=== PATIENT | male | born 1965 | race African-American/Black ===

== ENCOUNTER 2017-12-27 17:13 | Emergency (ER) | payer BC ==
[~2017-12-27] VITALS: Ht 180.3 cm; Wt 86.2 kg
[~2017-12-27 17:13] MED LIST: ACETAMINOPHEN325 M1 PO; NOHOMEMEDICATIONS; NORVASC 5 MG TAB5 MG PO; PRILOSEC 20 MG20 MG PO; TRIAMCINOLONE A15 G1 TP
[2017-12-27 17:45] LABS: ABSOLUTE NEUTROPHILS 2.1 thou/uL (1.4-8.2); BASOPHILS 0.6 % (0.0-2.0); EOSINOPHILS 1.1 % (0.0-3.0); HEMATOCRIT 48.2 % (42.0-52.0); LYMPHOCYTES 44.2 % (24.0-44.0); MCH 26.8 pg (26.0-34.0); MCHC 33.2 g/dL (28.0-37.0); MCV 80.5 fL (80.0-100.0); MONOCYTES 11.9 % (1.0-8.0); PLATELET COUNT 295 thou/uL (150-400); POLYS 42.2 % (36.0-66.0); RBC 5.98 mil/uL (4.50-6.00); RDW 15.8 % (10.5-14.5)
[2017-12-27 17:51] LABS: CALCIUM 10.7 mg/dL (8.5-10.1); CREATININE 1.2 mg/dL (0.7-1.3)
[2017-12-27 17:57] LABS: TOTAL BILIRUBIN 0.7 mg/dL (<0.1-1.0); TOTAL PROTEIN 8.1 g/dL (6.4-8.2)
[2017-12-27 18:20] LABS: URINE BILIRUBIN NEGATIVE (Negative); URINE BLOOD 1+ (Negative); URINE CLARITY CLEAR; URINE COLOR YELLOW; URINE GLUCOSE-RANDOM* NEGATIVE (Negative); URINE KETONES 2+ (Negative); URINE LEUKOCYTES NEGATIVE (Negative); URINE NITRITE NEGATIVE (Negative); URINE PROTEIN (DIPSTICK) NEGATIVE (Negative); URINE SPECIFIC GRAVITY >= 1.030 (1.005-1.035); URINE UROBILINOGEN 0.2 E.U./dl (0.2-1.0)
[2017-12-27 18:48] LABS: SQUAMOUS 0-3 Few /LPF (0-3); URINE RBC 3-10 Few /HPF (0-2)
[2017-12-27 18:49] LABS: BACTERIA None Seen /HPF (None Seen); CASTS None Seen /LPF (None Seen); CRYSTALS None Seen /LPF (None Seen); URINE WBC 0-5 Rare /HPF (0-5)
[2017-12-27] MEDS ORDERED: IBUPROFEN 600600 M1 PO (19:01)
[2017-12-27] MEDS ORDERED: PHENERGAN 25 MG25 M1 PO (19:01)
[2017-12-27] MEDS ORDERED: BENTYL 20 MG TA20 M1 PO (19:01)
== END 2017-12-27 19:11 | disposition home or self-care (01) ==
LOC: ER 17:13
PROVIDERS: Physician Assistant
DX: R10.31 Right lower quadrant pain (principal); R11.2 Nausea with vomiting, unspecified; J06.9 Acute upper respiratory infection, unspecified; Z87.891 Personal history of nicotine dependence

== ENCOUNTER 2018-02-23 07:35 | Emergency (ER) | payer BC ==
[~2018-02-23] VITALS: Ht 180.3 cm; Wt 81.7 kg
[~2018-02-23 07:35] MED LIST changes: +BENTYL 20 MG TA20 M1 PO; +IBUPROFEN 600600 M1 PO; +PHENERGAN 25 MG25 M1 PO
[2018-02-23 07:51] LABS: URINE BILIRUBIN NEGATIVE (Negative); URINE BLOOD TRACE (Negative); URINE CLARITY CLEAR; URINE COLOR YELLOW; URINE GLUCOSE-RANDOM* NEGATIVE (Negative); URINE KETONES NEGATIVE (Negative); URINE LEUKOCYTES-REFLEX NEGATIVE (Negative); URINE NITRITE-REFLEX NEGATIVE (Negative); URINE PROTEIN (DIPSTICK) TRACE (Negative); URINE SPECIFIC GRAVITY 1.015 (1.005-1.035); URINE UROBILINOGEN 0.2 E.U./dl (0.2-1.0)
[2018-02-23 08:06] LABS: ABSOLUTE NEUTROPHILS 3.4 thou/uL (1.4-8.2); BASOPHILS 0.6 % (0.0-2.0); EOSINOPHILS 1.3 % (0.0-3.0); HEMATOCRIT 44.7 % (42.0-52.0); HEMOGLOBIN 14.8 gm/dL (14.0-18.0); LYMPHOCYTES 24.9 % (24.0-44.0); MCH 26.3 pg (26.0-34.0); MCHC 33.2 g/dL (28.0-37.0); MCV 79.4 fL (80.0-100.0); MONOCYTES 7.7 % (1.0-8.0); PLATELET COUNT 395 thou/uL (150-400); POLYS 65.5 % (36.0-66.0); RBC 5.63 mil/uL (4.50-6.00); RDW 15.9 % (10.5-14.5); WBC 5.2 thou/uL (4.0-11.0)
[2018-02-23 08:13] LABS: CALCIUM 10.9 mg/dL (8.5-10.1); POTASSIUM 3.8 mmol/L (3.5-5.1)
[2018-02-23 08:19] LABS: ALBUMIN 3.9 g/dL (3.4-5.0); TOTAL BILIRUBIN 0.5 mg/dL (<0.1-1.0); TOTAL PROTEIN 8.1 g/dL (6.4-8.2)
[2018-02-23] MEDS ORDERED: ROXICODONE30 M1 PO (08:22)
[2018-02-23] MEDS ORDERED: SENNA8.6 MG PO (08:23)
[2018-02-23] MEDS ORDERED: PHENERGAN 25 MG25 M1 PO (11:27)
[2018-02-23] MEDS ORDERED: ZOFRAN ODT4 MG PO (11:27)
[2018-02-23] MEDS ORDERED: SENNA-DOCUSATE1 EAC1 PO (11:32)
[2018-02-23 11:37] VITALS: BP 117/79
== END 2018-02-23 11:39 | disposition home or self-care (01) ==
LOC: ER 07:35
PROVIDERS: Emergency Medicine
DX: K52.9 Noninfective gastroenteritis and colitis, unspecified (principal); Z87.891 Personal history of nicotine dependence; Z88.8 Allergy status to other drugs, medicaments and biological substances; Z95.5 Presence of coronary angioplasty implant and graft

== ENCOUNTER 2018-06-05 01:06 | Inpatient (IN) | payer BC ==
[~2018-06-05] VITALS: Ht 180.3 cm; Wt 71.2 kg
[2018-06-05] VITALS (7 sets, daily range): BP systolic 105–160; BP diastolic 70–91
[~2018-06-05 01:06] MED LIST changes: +ROXICODONE30 M1 PO; +SENNA-DOCUSATE1 EAC1 PO; +SENNA8.6 MG PO; +ZOFRAN ODT4 MG PO
[2018-06-05] MEDS ORDERED: ENOXAPARIN80 MG/0.1 SUBQ (01:49)
[2018-06-05] MEDS ORDERED: PHENERGAN 25 MG25 M1 PO (01:49)
[2018-06-05] MEDS ORDERED: ONDANSETRON ODT8 MG PO (01:50)
[2018-06-05] MEDS ORDERED: PROTONIX40 M1 PO (01:50)
[2018-06-05] MEDS ORDERED: METOCLOPRAM5 MG/5 M3 PO (01:50)
[2018-06-05] MEDS ORDERED: LORAZEPAM2 MG/1 M2 PO (01:52)
[2018-06-05] MEDS ORDERED: FENTANYL1 EAC1 TRANSDERM (01:52)
[2018-06-05] MEDS ORDERED: COMPAZINE10 MG PO (01:52)
[2018-06-05] MEDS ORDERED: MORPHINE S100 MG/5 M SUBLING (01:53)
[2018-06-05 02:17] LABS: ABSOLUTE NEUTROPHILS 6.8 thou/uL (1.4-8.2); BASOPHILS 0.5 % (0.0-2.0); EOSINOPHILS 0.6 % (0.0-3.0); HEMATOCRIT 33.8 % (42.0-52.0); HEMOGLOBIN 11.1 gm/dL (14.0-18.0); LYMPHOCYTES 7.4 % (24.0-44.0); MCH 25.5 pg (26.0-34.0); MCHC 32.8 g/dL (28.0-37.0); MCV 77.9 fL (80.0-100.0); MONOCYTES 6.2 % (1.0-8.0); PLATELET COUNT 357 thou/uL (150-400); POLYS 85.3 % (36.0-66.0); RBC 4.34 mil/uL (4.50-6.00); RDW 16.3 % (10.5-14.5); WBC 7.9 thou/uL (4.0-11.0)
[2018-06-05 02:26] LABS: CALCIUM 10.1 mg/dL (8.5-10.1); CREATININE 0.9 mg/dL (0.7-1.3); POTASSIUM 3.6 mmol/L (3.5-5.1)
[2018-06-05 02:31] LABS: ALBUMIN 1.9 g/dL (3.4-5.0); TOTAL BILIRUBIN 0.5 mg/dL (<0.1-1.0); TOTAL PROTEIN 6.9 g/dL (6.4-8.2)
--- NOTE | 2018-06-05 06:46 | NUR ---
RECIEVED PATIENT PER CART FROM ER WITH AT SIDE. ASSISTED TO BED FOR COMFORT. PATIENT DROWSY AND IS ANSWERING QUESTIONS FOR HIM. TELEMETRY SHOWS SR WITH RATE 86. PATIENT RESTING WITHOUT PRESENT COMPLAINTS OF PAIN OR NAUSEA AT THIS TIME. CONTINUE TO ASSES. ADMISSION PROCES STARTED. SHOWN PATIENT LOUNGE WITH COFFEE MACHINE. REPORT GIVEN TO DAY RN.
--- NOTE | 2018-06-05 09:50 | NUR ---
chart review. cm visited with pt at bedside. he prefers going by larissa. intro to cm, dcp, transition of care, and home health. pt stated with his eyes open and closed " live with , house, 6 steps to enter, no stairs inside. independent when feeling ok. 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 getting immunotherapy. tpn at home in right arm, my does that. have home health. you will need to ask jonny, who it is with. thank you going to rest"/larissa. letting pt rest called jonny, no answer, will cont following as needed for dc needs. dcp home
--- NOTE | 2018-06-05 20:01 | NUR ---
Assumed pt care this am, admission requirements done except for consents, pt was very drowsy. Pt did have an episode of nausea and vomiting accompanied by abdominal pain. Medications given, relief noted since pt was asleep for most of the shift. Seen by Dr. Leonard, G- tube put on intermittent suction, out put is only in the tubing, instructions are to measure output every 12 hours. is at the bedside and will be spending the night.
[2018-06-06 04:03] VITALS: BP 135/85
[2018-06-06 05:48] LABS: URINE BILIRUBIN 2+ (Negative); URINE BLOOD NEGATIVE (Negative); URINE CLARITY CLEAR; URINE COLOR ORANGE; URINE GLUCOSE-RANDOM* NEGATIVE (Negative); URINE KETONES NEGATIVE (Negative); URINE LEUKOCYTES-REFLEX NEGATIVE (Negative); URINE NITRITE-REFLEX NEGATIVE (Negative); URINE PROTEIN (DIPSTICK) TRACE (Negative); URINE SPECIFIC GRAVITY >= 1.030 (1.005-1.035)
[2018-06-06 05:54] LABS: HEMATOCRIT 29.9 % (42.0-52.0); MCH 26.3 pg (26.0-34.0); MCHC 33.4 g/dL (28.0-37.0); MCV 78.9 fL (80.0-100.0); RBC 3.79 mil/uL (4.50-6.00); RDW 16.9 % (10.5-14.5); WBC 5.2 thou/uL (4.0-11.0)
[2018-06-06 06:06] LABS: CALCIUM 10.1 mg/dL (8.5-10.1); CREATININE 0.8 mg/dL (0.7-1.3); POTASSIUM 3.7 mmol/L (3.5-5.1)
[2018-06-06 07:10] VITALS: BP 117/74
--- NOTE | 2018-06-06 07:27 | NUR ---
PATIENT SLEPT PART OF THE NIGHT WITH AT BEDSIDE. PATIENT DID REPORT NAUSEA AND PAIN WHICH WAS TREATED WITH MEDICATION. G-TUBE IS TO LOW INTEMETTENT SUCTION AND HAD 500 DARK GREEN OUTPUT. FAMILY WAS CONCERNED ABOUT NUTRITION AND Dian DIALLO WAS NOTIFIED. ORDERS FOR TPN RECEIVEDS. PATIENT IS PROGRESSING TOWARDS DC GOALS.
[2018-06-06] MEDS ORDERED: ZOFRAN ODT4 MG SUBLING (09:58)
[2018-06-06] MEDS ORDERED: DURAGESIC1 EAC4 TOP (10:02)
[2018-06-06] MEDS ORDERED: DURAGESIC1 EAC5 TOP (10:04)
[2018-06-06] MEDS ORDERED: ADULT SUPPOSIT1 EACH RECTAL (10:08)
[2018-06-06] MEDS ORDERED: PROMETHAZI6.25 MG/5 PO (10:15)
--- NOTE | 2018-06-06 12:00 | NUR ---
VASCULAR ACCESS TEAM ROUNDING, OBTAINED CXR TO CONFIRM PICC PLACEMENT. PT WAS ADMITTED WITH PICC LINE. PT RECEIVING TPN AND FLUIDS. PICC IS APPROPRIATE FOR TPN. +BR X2.
[2018-06-06 14:39] VITALS: BP 127/82
--- NOTE | 2018-06-06 17:20 | NUR ---
RECIEVED FAX AND VM FROM [facility] INDICATING THAT PT HAD BEEN ON SERVICE WITH THEM DELI DEPARTMENT MANAGER. CM TO CALL THEM BACK ABOUT HOME SUCTION TOMORROW. CM TO CONTINUE TO FOLLOW INDICATED WITH DC PLANNING.
--- NOTE | 2018-06-06 18:35 | NUR ---
Pt resumed TPN this am. Med list and other medical records with regards to TPN given to pharmacy and Dr. Barr. G tube connected to the intermittent suction draining yellowish green fluid. Nausea and vomiting stated, though not witnessed. PICC line verified and dressing and caps changed by IV team today. complete bath was given by himself assisted by his . Daily weights were ordered. Pain medication is requested on the dot though pt would be coming from sleep and and did not show signs of pain. is at the bed side.
[2018-06-06 20:00] VITALS: BP 120/76
--- NOTE | 2018-06-07 02:22 | NUR ---
ASSUMED CARE AROUND 0. AXOX4. AT BEDSIDE. FENTANYL PATCH CLARIFIED TO 1 75MCG PATCH. PO PROTONIX CHANGED TO IV PEPSID. COMPAZINE ADDED TO AID NAUSEA. TPN CAHNGED TO FORMULA WITH LIPIDS. PAIN MANGED PER MD ORDER. PEG CONNECTED TO SUCTION. IVF FOR HYDRATION. VSS. NO S/S ACUTE DISTRESS NOTED OR REPORTED AT THIS TIME. WILL CONT TO MONITOR ANY CHANGES IN CONDITION.
[2018-06-07 05:06] VITALS: BP 113/72
[2018-06-07 06:06] LABS: HEMATOCRIT 27.4 % (42.0-52.0); HEMOGLOBIN 8.8 gm/dL (14.0-18.0); MCH 25.8 pg (26.0-34.0); MCHC 32.3 g/dL (28.0-37.0); MCV 79.8 fL (80.0-100.0); RBC 3.43 mil/uL (4.50-6.00); RDW 16.5 % (10.5-14.5); WBC 4.7 thou/uL (4.0-11.0)
[2018-06-07 06:34] LABS: ALBUMIN 1.6 g/dL (3.4-5.0); CREATININE 0.7 mg/dL (0.7-1.3); MAGNESIUM 1.7 mg/dL (1.8-2.4); PHOSPHORUS 2.7 mg/dL (2.5-4.9); POTASSIUM 3.5 mmol/L (3.5-5.1); TOTAL BILIRUBIN 0.4 mg/dL (<0.1-1.0); TOTAL PROTEIN 5.7 g/dL (6.4-8.2)
[2018-06-07 07:37] VITALS: BP 112/71
[2018-06-07 13:53] VITALS: BP 119/81
--- NOTE | 2018-06-07 14:43 | NUR ---
CM NOTIFIED YESTERDAY EVENING THAT PT NEEDED SUCTION FOR HIS GTUBE FOR HOME USE. CM CALLED [facility], [facility], [facility], AND [facility] AND NONE OF THEM PROVIDE NEEDED SUPPLIES. CM FAXED ORDERS FOR PT'S TPN WITH [facility] BACK TO THE OFFICE AND THEY ARE ABLE TO PROVIDE TPN UPON DC. CM TRYING TO FIND PROVIDER FOR HOME SUCTION FOR GTUBE.
[2018-06-07 16:05] VITALS: BP 119/81
[2018-06-07 16:07] VITALS: BP 119/81
[2018-06-07 16:53] VITALS: BP 119/81
--- NOTE | 2018-06-07 18:10 | NUR ---
DISCHARGED TO HOME WITH HOME HEALTH. INTERMITTENT SUCTION SENT HOME WITH PATIENT AND THEY WILL RETURN WHEN THIER MACHINE GETS DELIVERED. AMBULATES WITHOUT ASSIST. VERY PLEASANT AND COOPERATIVE. LEFT UPPER ARM PICC SALINE LOCKED. VOIDS WITHOUT DIFFICULTY.
== END 2018-06-07 18:15 | disposition home health service (06) | DRG 388 ==
LOC: ER 01:06 → EROBS 05:30 → 4W 05:30 → ENTRNSPT 06-07 17:36 → 4W 06-07 18:15
PROVIDERS: Emergency Medicine; Nurse Practitioner Family; ADMIT Hospitalist
PROC: 05HY33Z Insertion of Infusion Device into Upper Vein, Percutaneous Approach (ICD-10-PCS; principal; 2018-06-06)
DX: K56.609 Unspecified intestinal obstruction, unspecified as to partial versus complete obstruction (principal); E43 Unspecified severe protein-calorie malnutrition; C18.9 Malignant neoplasm of colon, unspecified; D50.9 Iron deficiency anemia, unspecified; Z88.8 Allergy status to other drugs, medicaments and biological substances; Z87.891 Personal history of nicotine dependence; Z88.1 Allergy status to other antibiotic agents; Z68.21 Body mass index [BMI] 21.0-21.9, adult; Z93.1 Gastrostomy status; Z86.711 Personal history of pulmonary embolism; Z79.899 Other long term (current) drug therapy
CPT/HCPCS: 10045